=== PATIENT | female | born 1960 | race Caucasian/White ===

== ENCOUNTER 2018-01-02 09:43 | Day surgery (SDC) | payer OTHER ==
[2018-01-02] MEDS ORDERED: LIDOCAINE 2% 100 MG/5 ML UJET TP ONE (11:51)
[2018-01-02] MEDS ORDERED: fentaNYL 0.05 MG/ML VIAL ONE (11:51)
[2018-01-02] MEDS ORDERED: fentaNYL 0.05 MG/ML VIAL IVP ONE (14:20)
== END 2018-01-02 12:20 | disposition home or self-care (01) ==
LOC: MDS 09:43 → MMU 09:46 → MDS 12:20
PROVIDERS: ATTEND Internal Medicine Gastroenterology
DX: Z12.11 Encounter for screening for malignant neoplasm of colon (principal); K57.30 Diverticulosis of large intestine without perforation or abscess without bleeding; I10 Essential (primary) hypertension; E66.01 Morbid (severe) obesity due to excess calories; Z72.89 Other problems related to lifestyle; Z90.49 Acquired absence of other specified parts of digestive tract; Z79.899 Other long term (current) drug therapy; Z68.42 Body mass index [BMI] 45.0-49.9, adult
CPT/HCPCS: 45378; J3010; J7120